=== PATIENT | male | born 1960 | race Hispanic/Latino ===

== ENCOUNTER 2016-12-10 18:27 | Emergency (ER) | payer OTHER ==
[~2016-12-10] VITALS: Ht 157.5 cm; Wt 81.8 kg
[~2016-12-10 18:27] MED LIST: CLIN-78 PO; LISI-571 PO; METF500T4 PO; SIMV10TA4 PO
[2016-12-10 18:30] VITALS: BP 165/94; PULSE 78; RESP 18; O2SAT 98
--- NOTE | 2016-12-10 21:07 | ED.REPORT ---
HPI-Back Pain 40 and Over Date of Service Dec 10, 2016 ED Provider: Pan Chaney MD Patient is a 56 year old male with a history of chronic back pain, hypertension and diabetes who presents with acute low back pain onset one week ago. Associated symptoms include numbness in his feet (with the numbness slightly worse on the right) and leg pain. The patient also complains of abdominal pain that he thinks might be muscular. Patient denies incontinence, fever, cough, chills or bowel dysfunction. He reports that he has not had any new injury. Patient states that his job requires some heavy lifting but not very often. The patient states that he had an injury 25 years ago and has been dealing with pain since but that this pain is the worst he's ever felt. Nursing Notes Stated Complaint: BACK PAIN Chief Complaint: Back Pain or Injury Nursing Notes Reviewed: Yes Allergies: Coded Allergies: No Known Allergies (Unverified , 12/10/16) Scheduled Clindamycin (Clindamycin) 300 Mg Capsule 300 MG PO TID Dexamethasone (Dexamethasone) 4 Mg Tablet 4 MG PO DAILY Lisinopril (Lisinopril) 5 Mg Tablet 5 MG PO DAILY Metformin (Metformin) 500 Mg Tablet 1,000 MG PO BID Simvastatin (Simvastatin) 10 Mg Tablet 10 MG PO DAILY Scheduled PRN Hydrocodone-Acetaminophen 5-325 mg (Hydrocodone-Acetaminophen 5-325 mg) 1 Each Tablet 1-2 TABLET PO Q4H PRN PRN For Pain General Time Seen by MD: 21:06 Chief Complaint Lumbar pain Hx Obtained From: Patient Arrived By: Walk-in Sudden in Onset?: Yes Onset Occurred: 1 week ago Symptom Duration: Since onset Caused by: Spontaneous/no mechanism Location: : Spinal lumbar area Quality: Painful Radiation: : Left leg above knee: Left leg below knee: Right leg above knee: Right leg below knee Severity: Current: Severe Similar Sx Previous: No Past Medical History Past Medical History chronic back pain Reports: Diabetes mellitus, Hyperlipidemia, Hypertension Past Surgical History denies Family History noncontributory Smoking History Never Smoker Social History Alcohol Use: Denies alcohol use Drug Use: Denies drug use Other Social History: Good social support, , Local resident Occupation Works for the [employer] Status Independent Review of Systems Constitutional: Denies: Chills, Fever Respiratory: Denies: Non-productive cough, Shortness of breath GI: Reports: Abdominal pain Male: Denies Incontinence Musculoskeletal: Reports: Back pain, Extremity pain Neurologic: Reports: Numbness, Denies: Bladder dysfunction, Bowel dysfunction, Weakness Complete sys rev & neg: except as marked. Skin: Denies Itching, Denies Rash Physical Exam Initial Vital Signs Vital Signs (First) Date Time Temp Pulse Resp B/P Pulse Ox O2 Delivery O2 Flow Rate FiO2 12/10/16 18:30 36.7 78 18 165/94 98 Room Air Initial VS: Reviewed General/Constitutional: Awake, Alert Respiratory / Chest: Atraumatic, Breath sounds NL, Breath sounds = bilat, No respiratory distress Cardiovascular: Heart rate NL, Regular rhythm, Heart sounds NL Abdomen: Atraumatic, Soft, Non-tender Muscle Spasm / ROM: Positive: ROM decrease - mild normal dorsal and plantar flexion at the ankles able to stand unassisted Neurologic: Oriented X3, Speech NL, No motor deficits, No sensory deficits, CN II - XII intact, Gait NL Lower Extremity / Pelvis / MS: Neurologic intact, Vascular intact Skin: Atraumatic, Color NL, No rash, Warm, Dry Head / Eyes: Atraumatic, Normocephalic, PERRL, EOMI Psychiatric: Affect NL, Mood NL Re-Eval/Medical Decision Re-Evaluation/Progress : Time of Eval: 21:19 Re-Evaluation/Progress Note: Discussed plan for discharge. Patient understands and agrees to plan. All questions were addressed. Counseled Regarding: Diagnosis, Need for follow-up, When/why to return to ED Discharge & Departure Impression: Primary Impression: Lumbosacral strain Disposition: Home Discharge Condition All VS Reviewed: Yes Condition: Stable Patient Instructions: Acute Low Back Pain (ED), Lumbar Radiculopathy (ED) Additional Instructions: I do not suspect and immediately dangerous cause for the pain that you are experiencing right now. I do recommend follow-up next week with your provider. Follow-up right away for: Incontinence, lower extremity weakness or fever or dense persistent numbness. To manage the pain I recommend: Hydrocodone/APAP 5/325 1-2 tablets every 4-6 hours as needed for pain. I also recommended Decadron 4 mg daily for 5 days. Referrals: Amrit Pepper DO (PCP) Scribe Attestation Portions of this note were transcribed by Madison Sparks. IDr. Chaney personally performed the history, physical exam and medical decision-making; I reviewed and confirmed the accuracy of the information in the transcribed note. Signed by: Radha Currie, 12/10/16 copies to: Amrit Pepper Kirk H MD Dec 10, 2016 21:07 Gianna Sparks Dec 10, 2016 21:16
[2016-12-10] MEDS ORDERED: HYDROmorphone 1 mg/mL Inj IM ONE (21:25)
[2016-12-10] MEDS ORDERED: DXM4T PO (21:25)
[2016-12-10] MEDS ORDERED: HYDR-4003 PO (21:25)
[2016-12-10] MEDS ORDERED: _HYDROcodone/APAP 5-325 mg Tablet PO PRN (21:30)
[2016-12-10 22:16] VITALS: BP 146/90; PULSE 70; RESP 18; O2SAT 98
[2016-12-11] MEDS ORDERED: CYCL5TAB PO (10:56)
== END 2016-12-10 21:26 | disposition home or self-care (01) ==
LOC: SED 18:27
DX: S39.012A Strain of muscle, fascia and tendon of lower back, initial encounter (principal); X50.0XXA Overexertion from strenuous movement or load, initial encounter; Y93.89 Activity, other specified; Y92.69 Other specified industrial and construction area as the place of occurrence of the external cause; Y99.0 Civilian activity done for income or pay; R20.0 Anesthesia of skin; R10.9 Unspecified abdominal pain; I10 Essential (primary) hypertension; E11.9 Type 2 diabetes mellitus without complications; E78.5 Hyperlipidemia, unspecified; Z79.84 Long term (current) use of oral hypoglycemic drugs
CPT/HCPCS: 96372; 99283; J1170

== ENCOUNTER 2016-12-11 08:52 | Emergency (ER) | payer OTHER ==
[~2016-12-11] VITALS: Ht 157.5 cm; Wt 86.4 kg
[~2016-12-11 08:52] MED LIST changes: +DXM4T PO; +HYDR-4003 PO
[2016-12-11 09:15] VITALS: BP 128/79; PULSE 84; O2SAT 92
--- NOTE | 2016-12-11 09:32 | ED.REPORT ---
HPI-Back Pain 40 and Over Date of Service Dec 11, 2016 ED Provider: Seven Escoto MD Patient is a 56 year old male with a history of chronic back pain, hypertension , and diabetes who presents to the ED via EMS c/o exacerbation of chronic lumbar back pain onset one week ago. Patient denies abdominal pain, bowel or bladder incontinence, change in his usual feet numbness, lower extremity weakness, fever, chills, or cough. He denies any recent trauma. His job requires some heavy lifting but not very often. The patient states that he had an injury 25 years ago and has been dealing with pain since but that this pain is the worst he's ever felt. He was seen in the ED yesterday and was discharged with Hydrocodone/APAP 5/325 1 -2 tablets every 4-6 hours as needed for pain as well as Decadron 4 mg daily for 5 days. He returns today via EMS because of severe spasming back pain which is severely exacerbated by movement. Nursing Notes Stated Complaint: BACK PAIN Chief Complaint: Back Pain or Injury Nursing Notes Reviewed: Yes Allergies: Coded Allergies: No Known Allergies (Unverified , 12/10/16) Scheduled Clindamycin (Clindamycin) 300 Mg Capsule 300 MG PO TID Dexamethasone (Dexamethasone) 4 Mg Tablet 4 MG PO DAILY Lisinopril (Lisinopril) 5 Mg Tablet 5 MG PO DAILY Metformin (Metformin) 500 Mg Tablet 1,000 MG PO BID Simvastatin (Simvastatin) 10 Mg Tablet 10 MG PO DAILY Scheduled PRN Cyclobenzaprine (Cyclobenzaprine) 5 Mg Tablet 5 MG PO HS PRN PRN Spasm Hydrocodone-Acetaminophen 5-325 mg (Hydrocodone-Acetaminophen 5-325 mg) 1 Each Tablet 1-2 TABLET PO Q4H PRN PRN For Pain General Time Seen by MD: 09:14 Chief Complaint Lumbar pain Hx Obtained From: Patient, EMS Arrived By: Ambulance Sudden in Onset?: Yes Onset Occurred: 1 week ago Symptom Duration: Since onset Caused by: Spontaneous/no mechanism Location: : Perispinal lumbar Quality: Painful Severity: Current: Severe Severity: Maximum: Severe Recent Healthcare: Recent doctor visit Past Medical History Past Medical History chronic back pain Reports: Diabetes mellitus, Hyperlipidemia, Hypertension Past Surgical History denies Family History noncontributory Smoking History Never Smoker Social History Alcohol Use: Denies alcohol use Drug Use: Denies drug use Other Social History: Good social support, , Local resident Occupation Works for the [employer] Status Independent Review of Systems Constitutional: Denies: Chills, Fever Respiratory: Denies: Non-productive cough GI: Denies: Abdominal pain Musculoskeletal: Reports: Back pain, Lumbar pain Neurologic: Denies: Bladder dysfunction, Bowel dysfunction, Numbness, Weakness Complete sys rev & neg: except as marked. Physical Exam Initial Vital Signs Vital Signs (First) Date Time Temp Pulse Resp B/P Pulse Ox O2 Delivery O2 Flow Rate FiO2 12/11/16 09:15 36.2 84 128/79 92 Room Air 12/11/16 11:13 16 Initial VS: Reviewed, Vital signs normal Head / Eyes: Atraumatic, Normocephalic ENT: Mucous membranes moist, Conjunctiva normal, No scleral icterus Neck: Supple, Full range of motion Extremities: Vascular intact, Neuro intact, No swelling Skin: Warm, Dry, No cyanosis Psychiatric: Mood/affect normal, Behavior normal, Normal thought content General/Constitutional: Awake, Alert, No acute distress, Cooperative, Not toxic appearing Appearance / Presentation: Positive: In pain, Uncomfortable Respiratory / Chest: Breath sounds NL, Breath sounds = bilat, No respiratory distress, No rales, No rhonchi, No wheezing Cardiovascular: Heart rate NL, Regular rhythm, Heart sounds NL, No murmurs Abdomen: Atraumatic, Soft, Non-tender Back: Atraumatic, No midline vertebral tend Lumbar paraspinous tenderness Neurologic: Oriented X3, Speech NL, No motor deficits, No sensory deficits, CN II - XII intact, Cerebellar NL, Memory NL Interpretation & Diagnostics Lab Results Interpretation Result Diagram: 12/11/16 0923 12/11/16 0923 Test 12/11/16 09:23 12/11/16 10:35 White Blood Count 6.7th/mm3 (3.8-10.1) Red Blood Count 4.55mil/mm3 (4.40-5.80) Hemoglobin 13.7g/dL (13.8-17.2) Hematocrit 40.2% (41.0-50.0) Mean Corpuscular Volume 88.4fL (81-100) Mean Corpuscular Hemoglobin 30.1pg (27.0-35.0) Mean Corpuscular Hemoglobin Concent 34.1% (32.0-37.0) Red Cell Distribution Width 12.8% (12.3-15.4) Platelet Count 196bil/L (150-400) Neutrophils (%) (Auto) 85.6% (40-74) Lymphocytes (%) (Auto) 11.3% (14-46) Monocytes (%) (Auto) 2.2% (4-12) Eosinophils (%) (Auto) 0.3% (0-5) Basophils (%) (Auto) 0.3% (0-3) Sodium Level 134mEq/L (134-144) Potassium Level 4.4mEq/L (3.5-5.2) Chloride Level 96mEq/L (97-108) Carbon Dioxide Level 20mmol/L (18-29) Blood Urea Nitrogen 13mg/dL (6-24) Creatinine 0.62mg/dL (0.76-1.27) Estimat Glomerular Filtration Rate 144mL/min (>59) Glucose Level 394mg/dL (60-99) Calcium Level 9.3mg/dL (8.5-10.1) Total Bilirubin 0.3mg/dL (0.0-1.2) Aspartate Amino Transf (AST/SGOT) 44U/L (0-50) Alanine Aminotransferase (ALT/SGPT) 57U/L (0-44) Alkaline Phosphatase 125U/L (25-150) Troponin T 0.010ug/L (0.0-0.011) Total Protein 7.8g/dL (6.4-8.4) Albumin 4.3g/dL (3.4-5.0) Hold Urine Received (Received) ECG Interpretation ECG Interpretation: Sinus rhythm rate 81 Normal early repolarization No prior available for comparison Time: 09:54 Interpreted by: ED physician Normal ECG Interpretation: No acute ischemic changes Re-Eval/Medical Decision Med Decision/Clinical Course 56-year-old male presenting complaining of acute exacerbation of his chronic low back pain. There has been going on intermittently for many years. He was seen for similar yesterday. Denies any recent trauma. No new neurological deficits or changes. His neurological exam is normal. There is diffuse low back tenderness. He had minimal improvement with Toradol. He did have some morphine given by the paramedics which also provided minimal improvement. He was given a muscle relaxer. He was given Napoleon yesterday. He has no red flag symptoms. He has no infectious symptoms or signs to suggest epidural abscess. I do not see any indication for acute imaging. He was given a prescription for muscle relaxers with plans to follow up with his primary doctor Tuesday for further workup and possible imaging. He is agreeable with this plan. Return precautions given. Source of Hx: Old records, EMS Re-Evaluation/Progress : Time of Eval: 10:56 Patient Status: Condition improved, Moderate relief, Pain improved Re-Evaluation/Progress Note: Pt rechecked. Informed pt of plan for discharge. Pt understands and agrees with plan for discharge. F/U instructions and RTER warnings given. All questions addressed. Counseled Regarding: Diagnosis, Lab results, Need for follow-up, When/why to return to ED Discharge & Departure Impression: Primary Impression: Acute exacerbation of chronic low back pain Disposition: Home Discharge Condition All VS Reviewed: Yes Condition: Stable Patient Instructions: Acute Low Back Pain (ED) Additional Instructions: Labs and x-ray today were reassuring. There was no sign of infection. I believe you are experiencing an exacerbation of your chronic pain. Take Flexeril as directed for back spasms. You can take the previously prescribed hydrocodone as needed for severe pain. Follow-up with your primary care doctor in 2-3 days for a recheck. I recommend discussing obtaining another MRI at that time. Return to the emergency department if you experience bowel or bladder incontinence, fever, severe pain, worsening or change in leg numbness or weakness, vomiting, or for other concerning symptoms. Referrals: Amrit Pepper DO (PCP) Scribe Attestation Portions of this note were transcribed by Cedric Rodrigues. I, Dr. Escoto personally performed the history, physical exam and medical decision-making; I reviewed and confirmed the accuracy of the information in the transcribed note. copies to: Amrit Pepper Ben M MD Dec 11, 2016 09:32 CEDRIC RODRIGUES Dec 11, 2016 09:51
[2016-12-11 09:41] LABS: Mean Corpuscular Hemoglobin 30.1 pg (27.0-35.0); Mean Corpuscular Volume 88.4 fL (81-100)
[2016-12-11 09:42] LABS: BASOPHILS % (AUTO) 0.3 % (0-3); EOSINOPHILS % (AUTO) 0.3 % (0-5); MONOCYTES % (AUTO) 2.2 % (4-12); NEUTROPHILS % (AUTO) 85.6 % (40-74); Platelet Count 196 bil/L (150-400)
[2016-12-11] MEDS ORDERED: 0.9% Sodium Chloride 1,000 ML IV ONE (09:55)
[2016-12-11] MEDS ORDERED: MetoCLOpramide 5 mg/mL 2 mL Inj IVPUSH ONE (09:55)
[2016-12-11 10:04] LABS: TROPONIN T 0.01 ug/L (0.0-0.011)
[2016-12-11] MEDS ORDERED: CYCL5TAB PO (10:56)
[2016-12-11 11:13] VITALS: BP 130/72; PULSE 78; RESP 16; O2SAT 93
== END 2016-12-11 11:15 | disposition home or self-care (01) ==
LOC: EDUNIT# 08:52 → SED 08:52 → EDBD 08:52 → SED 11:15
DX: M54.5 Low back pain (principal); G89.29 Other chronic pain; I10 Essential (primary) hypertension; E11.9 Type 2 diabetes mellitus without complications; E78.5 Hyperlipidemia, unspecified; Z79.84 Long term (current) use of oral hypoglycemic drugs
CPT/HCPCS: 36415; 80053; 82948; 84484; 85025; 93005; 96361; 96374; 96375; 99285; J1885; J2765; J7030